=== PATIENT | male | born 1965 | race Caucasian/White ===

== ENCOUNTER 2018-12-30 13:01 | Inpatient (IN) | payer OTHER ==
[~2018-12-30] VITALS: Ht 162.6 cm; Wt 75.9 kg
[2018-12-30] VITALS (8 sets, daily range): BP systolic 161–199
[~2018-12-30 13:01] MED LIST: CALC667T6 PO; CARV25TA55 PO; CAT.1 PO; HYDR-4039 PO; INSU100I26 SQ; LIDOCAINE 2.5%; LOSA100T23 PO; MULT-952 PO; NIFE60TA PO
[2018-12-30 13:53] LABS: BILIRUBIN,URINE NEGATIVE (NEGATIVE); CLARITY/URINE CLEAR (CLEAR); COLOR,URINE YELLOW (YELLOW); GLUCOSE,URINE 2+ (NEGATIVE); KETONES,URINE NEGATIVE (NEGATIVE); LEUKOCYTE ESTERASE ,URINE NEGATIVE (NEGATIVE); NITRITE, URINE NEGATIVE (NEGATIVE); PROTEIN URINE 3+ (NEGATIVE); UROBILINOGEN,URINE 0.2 (0.2-1.0)
[2018-12-30 14:05] LABS: BLOOD, URINE TRACE (NEGATIVE)
[2018-12-30 14:08] LABS: ANION GAP 4 (5-15); CALCIUM 8.9 mg/dL (8.4-11.0); CHLORIDE 93 mmol/L (98-107); GLUCOSE 165 mg/dL (70-99); POTASSIUM 4.9 mmol/L (3.5-5.1); SODIUM SERUM 133 mmol/L (136-145); UREA NITROGEN, BLOOD 41 mg/dL (8-21)
[2018-12-30 14:12] LABS: EOSINOPHILS # (AUTO) 0.1 K/uL (0.0-0.4); EOSINOPHILS % (AUTO) 1.4 % (0.0-4.0); HEMATOCRIT 31.4 % (36-54); HEMOGLOBIN 10.5 g/dL (14.0-18.0); LYMPHOCYTES # (AUTO) 1.3 K/uL (1.0-5.5); LYMPHOCYTES % (AUTO) 17.4 % (20.5-51.5); MEAN CORPUSCULAR HEMOGLOBIN 31 pg (27-31); MEAN CORPUSCULAR HGB CONC 33 % (32-36); MEAN CORPUSCULAR VOLUME 93 fL (79.0-98.0); MONOCYTES # (AUTO) 0.9 K/uL (0.0-1.0); MONOCYTES % (AUTO) 12.5 % (1.7-9.3); PLATELET COUNT (AUTO) 206 K/uL (130-430); RED BLOOD CELL COUNT(AUTO) 3.39 MIL/uL (4.2-6.2); RED CELL DISTRIBUTION WIDTH 15.4 % (9.0-15.0); WHITE BLOOD COUNT (AUTO) 7.2 K/uL (4.8-10.8)
[2018-12-30 14:16] LABS: ALANINE AMINOTRANSFERASE 16 U/L (12-78); ALBUMIN 3.7 g/dL (3.4-4.8); ASPARTATE AMINOTRANSFERASE 16 U/L (10-37); BASOPHILS % (AUTO) 0.2 % (0.0-2.0); NEUTROPHILS % (AUTO) 68.5 % (40.0-70.0); TOTAL BILIRUBIN 0.6 mg/dL (0.0-1.0)
[2018-12-30 14:20] LABS: CREATININE 8.32 mg/dL (0.55-1.30); GFR AFRICAN AMERICAN 9 mL/min (>90)
[2018-12-30] MEDS ORDERED: MECLIZINE HCL 25 MG TABLET (ANITVERT) PO ONE (14:30)
[2018-12-30 14:34] LABS: BACTERIA,URINE RARE /HPF (None Seen); PH,URINE >=9.0 (5.0-8.0); WBC,URINE 0-3 /HPF (0-3)
[2018-12-30] MEDS ORDERED: VITA400C19 PO (15:48)
[2018-12-30] MEDS ORDERED: SUCR500T PO (15:48)
[2018-12-30] MEDS ORDERED: ERGO500020 PO (15:48)
[2018-12-30] MEDS ORDERED: IOHEXOL 350 mgI/mL, 150 ML INFUS..BTL IV ONE (16:40)
[2018-12-30] MEDS ORDERED: IPRATROPIUM/ALBUTEROL SULFATE 3 ML AMPUL.NEB (DUONEB) INH PRN (18:30)
[2018-12-30] MEDS ORDERED: ONDANSETRON HCL 4 MG/2 ML VIAL IVP PRN ×2 (18:30→19:15)
[2018-12-30] MEDS ORDERED: IPRATROPIUM/ALBUTEROL SULFATE 3 ML AMPUL.NEB (DUONEB) ONE (18:38)
[2018-12-30] MEDS ORDERED: LORazepam 2 MG/ML VIAL IVP SCH (19:00)
[2018-12-30] MEDS: LORazepam 1 MG TABLET PO ONE ×2 (19:06→19:26)
[2018-12-30] MEDS ORDERED: LORazepam 2 MG/ML VIAL ONE (19:10)
[2018-12-30] MEDS ORDERED: HYDROcodone/ACETAMIN 5-325 MG TAB (NORCO/ VICODIN) PO PRN (19:15)
[2018-12-30] MEDS ORDERED: ACETAMINOPHEN 325 MG TABLET PO PRN (19:15)
[2018-12-30] MEDS ORDERED: ALBUTEROL SULFATE 0.083% 2.5 MG/3 ML VIAL.NEB INH PRN (19:15)
[2018-12-30] MEDS ORDERED: HYDROcodone/ACETAMIN 10-325 MG TAB PO PRN (19:15)
[2018-12-30] MEDS ORDERED: LORazepam 2 MG/ML VIAL IVP PRN (19:15)
[2018-12-30] MEDS ORDERED: D5W 1,000 ML IV PRN (19:19)
[2018-12-30] MEDS ORDERED: GLUCOSE 15 GM GEL (in 37.5 GM TUBE) PO PRN (19:30)
[2018-12-30] MEDS ORDERED: cloNIDine HCL 0.1 MG TABLET PO SCH (19:30)
[2018-12-30] MEDS ORDERED: DEXTROSE 50% JECT 50 ML DISP.SYRIN IVP PRN (19:30)
[2018-12-30] MEDS: IPRATROPIUM/ALBUTEROL SULFATE 3 ML AMPUL.NEB (DUONEB) INH SCH ×2 (19:50→23:18)
[2018-12-30] MEDS: hydrALAZINE HCL 25 MG TABLET PO SCH (20:17)
[2018-12-30] MEDS: CARVEDILOL 25 MG TABLET (COREG) PO SCH (20:18)
[2018-12-30] MEDS ORDERED: CALCIUM ACETATE 667 MG PO SCH (21:00)
[2018-12-30] MEDS ORDERED: AMPICILLIN SODIUM/SULBACTAM NA 1.5 GM in NS 50 ML IV SCH (21:00)
[2018-12-30] MEDS ORDERED: cefTRIAXone 1 GM IVPB PREMIX 50 ML IV ONE (21:00)
[2018-12-30] MEDS: cefTRIAXone 1 GM in D5W 50 ML IV SCH (21:45)
[2018-12-30] MEDS: NORMAL SALINE 5 ML DISP.SYRIN IVF SCH (21:46)
[2018-12-30] MEDS: LIDOCAINE JELLY 5 ML TUBE MM PRN (21:57)
[2018-12-30] MEDS ORDERED: NORMAL SALINE 5 ML DISP.SYRIN IVF SCH (22:00)
[2018-12-30] MEDS ORDERED: IPRATROPIUM BROM 0.5 MG/2.5 ML VIAL.NEB (ATROVENT) INH SCH (23:00)
[2018-12-31] VITALS (18 sets, daily range): BP systolic 134–172
[2018-12-31] MEDS ORDERED: AMPICILLIN SODIUM/SULBACTAM NA 1.5 GM in NS 50 ML IV SCH ×2
[2018-12-31] MEDS: IPRATROPIUM/ALBUTEROL SULFATE 3 ML AMPUL.NEB (DUONEB) INH SCH ×4 (03:00→19:35)
[2018-12-31] MEDS: NORMAL SALINE 5 ML DISP.SYRIN IVF SCH ×3 (06:04→21:03)
[2018-12-31] MEDS: INSULIN REGULAR, HUMAN 100 UNITS/ML, 10 ML VIAL (humuLIN R) SUBCUT PRN ×2 (06:04→17:17)
[2018-12-31 07:05] LABS: BASOPHILS # (AUTO) 0.1 K/uL (0.0-0.2); BASOPHILS % (AUTO) 0.7 % (0.0-2.0); EOSINOPHILS # (AUTO) 0.1 K/uL (0.0-0.4); EOSINOPHILS % (AUTO) 1.2 % (0.0-4.0); HEMATOCRIT 29.6 % (36-54); HEMOGLOBIN 10.1 g/dL (14.0-18.0); LYMPHOCYTES # (AUTO) 1.3 K/uL (1.0-5.5); LYMPHOCYTES % (AUTO) 18.3 % (20.5-51.5); MEAN CORPUSCULAR HEMOGLOBIN 31 pg (27-31); MEAN CORPUSCULAR HGB CONC 34 % (32-36); MEAN CORPUSCULAR VOLUME 92 fL (79.0-98.0); MONOCYTES # (AUTO) 0.9 K/uL (0.0-1.0); NEUTROPHILS # (AUTO) 4.8 K/uL (1.8-7.7); NEUTROPHILS % (AUTO) 67.8 % (40.0-70.0); PLATELET COUNT (AUTO) 183 K/uL (130-430); RED BLOOD CELL COUNT(AUTO) 3.21 MIL/uL (4.2-6.2); RED CELL DISTRIBUTION WIDTH 15.4 % (9.0-15.0); WHITE BLOOD COUNT (AUTO) 7.1 K/uL (4.8-10.8)
[2018-12-31 07:26] LABS: ALBUMIN 3.2 g/dL (3.4-4.8); CALCIUM 8.3 mg/dL (8.4-11.0); CREATININE 5.67 mg/dL (0.55-1.30); PHOSPHORUS 4.7 mg/dL (2.7-4.5); POTASSIUM 4.1 mmol/L (3.5-5.1); TOTAL BILIRUBIN 0.6 mg/dL (0.0-1.0)
[2018-12-31] MEDS: CALCIUM ACETATE 667 MG CAP PO SCH ×3 (08:22→18:09)
[2018-12-31] MEDS: MULTIVITS,CA,MINERALS/IRON/FA 1 TABLET PO SCH (08:22)
[2018-12-31] MEDS: hydrALAZINE HCL 25 MG TABLET PO SCH ×3 (08:22→21:02)
[2018-12-31] MEDS: LOSARTAN POTASSIUM 50 MG TABLET (COZAAR) PO SCH (08:23)
[2018-12-31] MEDS: CARVEDILOL 25 MG TABLET (COREG) PO SCH ×2 (08:23→21:01)
[2018-12-31] MEDS: NIFEDIPINE 30 MG TAB.ER.24 PO SCH (08:24)
[2018-12-31] MEDS: INSULIN GLARGINE 100 UNITS/ML 10 ML VIAL SUBCUT SCH (08:27)
[2018-12-31] MEDS ORDERED: [UNRECOGNIZED DRUG - OTHER] SQ SCH (09:00)
[2018-12-31] MEDS ORDERED: INSULIN GLARGINE HUM REC ANLOG 10 UNIT SQ SCH (09:00)
[2018-12-31] MEDS ORDERED: AZITHROMYCIN 250 MG TABLET PO SCH (09:00)
[2018-12-31] MEDS ORDERED: [UNRECOGNIZED DRUG - OTHER] PO SCH (09:00)
[2018-12-31] MEDS ORDERED: D3 PO SCH (09:00)
[2018-12-31] MEDS ORDERED: NON-FORMULARY MEDICATION (Losartan Potassium 100 MG) PO SCH (09:00)
[2018-12-31] MEDS ORDERED: FLU VACC QS2019-20 36MOS UP/PF 60 MCG/0.5 ML SYRINGE I.M. PRN (09:00)
[2018-12-31] MEDS ORDERED: NON-FORMULARY MEDICATION (Nifedipine (Procardia Xl) 60 MG) PO SCH (09:00)
[2018-12-31] MEDS: VITAMIN E 400 UNIT CAPSULE PO SCH (12:32)
[2018-12-31] MEDS: LIDOCAINE JELLY 5 ML TUBE MM PRN (13:01)
[2018-12-31] MEDS: cefTRIAXone 1 GM in D5W 50 ML IV SCH (21:02)
[2019-01-01] MEDS: IPRATROPIUM/ALBUTEROL SULFATE 3 ML AMPUL.NEB (DUONEB) INH SCH ×4 (01:20→19:48)
[2019-01-01] MEDS: NORMAL SALINE 5 ML DISP.SYRIN IVF SCH ×3 (05:36→20:54)
[2019-01-01 07:01] LABS: C-REACTIVE PROTEIN QUANT 1.5 mg/dL (0-0.5); CALCIUM 8.6 mg/dL (8.4-11.0); CREATININE 6.47 mg/dL (0.55-1.30); PHOSPHORUS 5.2 mg/dL (2.7-4.5)
[2019-01-01 07:08] LABS: BASOPHILS # (AUTO) 0.1 K/uL (0.0-0.2); BASOPHILS % (AUTO) 0.9 % (0.0-2.0); EOSINOPHILS # (AUTO) 0.2 K/uL (0.0-0.4); EOSINOPHILS % (AUTO) 2.6 % (0.0-4.0); HEMOGLOBIN 10.9 g/dL (14.0-18.0); LYMPHOCYTES # (AUTO) 1.5 K/uL (1.0-5.5); MEAN CORPUSCULAR HEMOGLOBIN 32 pg (27-31); MEAN CORPUSCULAR HGB CONC 34 % (32-36); MEAN CORPUSCULAR VOLUME 93 fL (79.0-98.0); MONOCYTES # (AUTO) 0.8 K/uL (0.0-1.0); MONOCYTES % (AUTO) 12.1 % (1.7-9.3); NEUTROPHILS # (AUTO) 4.1 K/uL (1.8-7.7); NEUTROPHILS % (AUTO) 61.4 % (40.0-70.0); PLATELET COUNT (AUTO) 197 K/uL (130-430); RED BLOOD CELL COUNT(AUTO) 3.45 MIL/uL (4.2-6.2); RED CELL DISTRIBUTION WIDTH 15.1 % (9.0-15.0); WHITE BLOOD COUNT (AUTO) 6.7 K/uL (4.8-10.8)
[2019-01-01 07:21] VITALS: BP_SYST 149
[2019-01-01 07:59] LABS: ERYTHROCYTE SEDIMENTATION RATE 28 MM/HR (0-15)
[2019-01-01] MEDS: VITAMIN E 400 UNIT CAPSULE PO SCH (08:21)
[2019-01-01] MEDS: MULTIVITS,CA,MINERALS/IRON/FA 1 TABLET PO SCH (08:21)
[2019-01-01] MEDS: CALCIUM ACETATE 667 MG CAP PO SCH ×3 (08:21→17:42)
[2019-01-01] MEDS ORDERED: BENZOCAINE 20% 0.5mL UD SPRAY MM ONE (08:30)
[2019-01-01] MEDS: CARVEDILOL 25 MG TABLET (COREG) PO SCH ×2 (09:00→20:52)
[2019-01-01] MEDS: INSULIN GLARGINE 100 UNITS/ML 10 ML VIAL SUBCUT SCH (09:43)
[2019-01-01 11:01] VITALS: BP_SYST 157
[2019-01-01 11:35] VITALS: BP_SYST 167
[2019-01-01 11:44] VITALS: BP_SYST 140
[2019-01-01] MEDS: NIFEDIPINE 30 MG TAB.ER.24 PO SCH (12:28)
[2019-01-01] MEDS: hydrALAZINE HCL 25 MG TABLET PO SCH ×3 (12:30→20:51)
[2019-01-01] MEDS: LOSARTAN POTASSIUM 50 MG TABLET (COZAAR) PO SCH (12:32)
[2019-01-01] MEDS: AZITHROMYCIN 500 MG in NS 250 ML IV SCH (12:35)
[2019-01-01 15:41] VITALS: BP_SYST 141
[2019-01-01] MEDS ORDERED: EPOETIN ALFA 4,000 UNITS/ML VIAL SUBCUT SCH (17:00)
[2019-01-01 20:00] VITALS: BP_SYST 144
[2019-01-01] MEDS: cefTRIAXone 1 GM in D5W 50 ML IV SCH (20:54)
[2019-01-02] MEDS: IPRATROPIUM/ALBUTEROL SULFATE 3 ML AMPUL.NEB (DUONEB) INH SCH ×3 (01:00→13:00)
[2019-01-02 01:33] VITALS: BP_SYST 146
[2019-01-02] MEDS: NORMAL SALINE 5 ML DISP.SYRIN IVF SCH (06:19)
[2019-01-02 06:51] LABS: BASOPHILS # (AUTO) 0.1 K/uL (0.0-0.2); BASOPHILS % (AUTO) 0.9 % (0.0-2.0); EOSINOPHILS # (AUTO) 0.3 K/uL (0.0-0.4); EOSINOPHILS % (AUTO) 3.6 % (0.0-4.0); HEMOGLOBIN 10.8 g/dL (14.0-18.0); LYMPHOCYTES # (AUTO) 1.5 K/uL (1.0-5.5); LYMPHOCYTES % (AUTO) 21.2 % (20.5-51.5); MEAN CORPUSCULAR HEMOGLOBIN 31 pg (27-31); MEAN CORPUSCULAR HGB CONC 34 % (32-36); MEAN CORPUSCULAR VOLUME 92 fL (79.0-98.0); MONOCYTES % (AUTO) 14.6 % (1.7-9.3); NEUTROPHILS # (AUTO) 4.2 K/uL (1.8-7.7); NEUTROPHILS % (AUTO) 59.7 % (40.0-70.0); PLATELET COUNT (AUTO) 196 K/uL (130-430); RED BLOOD CELL COUNT(AUTO) 3.47 MIL/uL (4.2-6.2); RED CELL DISTRIBUTION WIDTH 15.1 % (9.0-15.0)
[2019-01-02 07:29] LABS: C-REACTIVE PROTEIN QUANT 0.9 mg/dL (0-0.5); CALCIUM 8.4 mg/dL (8.4-11.0); CREATININE 7.06 mg/dL (0.55-1.30); PHOSPHORUS 6.5 mg/dL (2.7-4.5); POTASSIUM 4.2 mmol/L (3.5-5.1)
[2019-01-02 07:58] VITALS: BP_SYST 142
[2019-01-02] MEDS: AZITHROMYCIN 500 MG in NS 250 ML IV SCH (08:27)
[2019-01-02] MEDS: MULTIVITS,CA,MINERALS/IRON/FA 1 TABLET PO SCH (08:29)
[2019-01-02 08:30] LABS: ERYTHROCYTE SEDIMENTATION RATE 26 MM/HR (0-15)
[2019-01-02] MEDS: VITAMIN E 400 UNIT CAPSULE PO SCH (08:30)
[2019-01-02] MEDS: CALCIUM ACETATE 667 MG CAP PO SCH (08:30)
[2019-01-02] MEDS: LOSARTAN POTASSIUM 50 MG TABLET (COZAAR) PO SCH (08:31)
[2019-01-02] MEDS: hydrALAZINE HCL 25 MG TABLET PO SCH (08:31)
[2019-01-02] MEDS: NIFEDIPINE 30 MG TAB.ER.24 PO SCH (08:32)
[2019-01-02] MEDS: CARVEDILOL 25 MG TABLET (COREG) PO SCH (08:32)
[2019-01-02] MEDS: INSULIN GLARGINE 100 UNITS/ML 10 ML VIAL SUBCUT SCH (08:39)
[2019-01-02] MEDS ORDERED: AZIT500T3 PO (09:31)
[2019-01-02 10:28] VITALS: BP_SYST 135
[2019-01-02 12:00] VITALS: BP_SYST 135
[2019-01-02 12:07] VITALS: BP_SYST 142
[2019-01-02 20:09] LABS: LEGIONELLA PNEUMOPHILIA AB <0.91 OD ratio (0.00-0.90)
[2019-01-02 21:30] LABS: MYCOPLASMA PNEUMONIAE IgM <770 U/mL (0-769)
[2019-01-06 20:03] LABS: COCCIDIOIDES AB COMPLEMENT FIX None Detected (NEGATIVE)
== END 2019-01-02 13:25 | disposition home or self-care (01) | DRG 682 ==
LOC: SED 13:01 → STU 17:31 → SIC 20:41 → STU 12-31 17:24
PROVIDERS: ADMIT Preventive Medicine Preventive Medicine/Occupational Environmental Medicine; ATTEND Preventive Medicine Preventive Medicine/Occupational Environmental Medicine
PROC: 5A1D70Z Performance of Urinary Filtration, Intermittent, Less than 6 Hours Per Day (ICD-10-PCS; principal; 2018-12-30)
PROC: 5A1D70Z Performance of Urinary Filtration, Intermittent, Less than 6 Hours Per Day (ICD-10-PCS; 2018-12-31)
PROC: 5A1D70Z Performance of Urinary Filtration, Intermittent, Less than 6 Hours Per Day (ICD-10-PCS; 2019-01-01)
DX: I12.0 Hypertensive chronic kidney disease with stage 5 chronic kidney disease or end stage renal disease (principal); J96.01 Acute respiratory failure with hypoxia; J18.9 Pneumonia, unspecified organism; N18.6 End stage renal disease; E87.1 Hypo-osmolality and hyponatremia; E87.70 Fluid overload, unspecified; E11.22 Type 2 diabetes mellitus with diabetic chronic kidney disease; D63.1 Anemia in chronic kidney disease; E11.21 Type 2 diabetes mellitus with diabetic nephropathy; E11.42 Type 2 diabetes mellitus with diabetic polyneuropathy; E11.65 Type 2 diabetes mellitus with hyperglycemia; E78.5 Hyperlipidemia, unspecified; Z99.2 Dependence on renal dialysis; E55.9 Vitamin D deficiency, unspecified; Z79.899 Other long term (current) drug therapy
CPT/HCPCS: 36415; 36600; 71045; 71275; 80048; 80053; 81000-TC; 82803-TC; 82962; 83605; 83735-TC; 83880; 84100-TC; 84484; 85025; 85651-TC; 86140; 86635; 86713; 86738; 87040-TC; 87081; 90935; 90937; 93005; 93306; 94640; 94760; 99291; G0378; J0295; J0456; J0696; J0885; J1815; J2060; J7030; J7050; J7060; J7620; J8597; Q0144; Q9967

== ENCOUNTER 2019-01-07 05:09 | Inpatient (IN) | payer OTHER ==
[2019-01-07] VITALS (20 sets, daily range): BP systolic 136–245
[~2019-01-07] VITALS: Ht 162.6 cm; Wt 74.4 kg
[~2019-01-07 05:09] MED LIST changes: +AZIT500T3 PO; +ERGO500020 PO; +SUCR500T PO; +VITA400C19 PO
[2019-01-07] MEDS ORDERED: methylPREDNISolone SOD SUCC/PF 62.5 MG/ML VIAL IVP ONE (05:15)
[2019-01-07] MEDS ORDERED: IPRATROPIUM/ALBUTEROL SULFATE 3 ML AMPUL.NEB (DUONEB) INH ONE (05:15)
[2019-01-07] MEDS ORDERED: FUROSEMIDE 40 MG/4 ML VIAL IVP ONE (05:30)
[2019-01-07] MEDS ORDERED: NITROGLYCERIN 0.4 MG TAB.SUBL SL ONE ×2 (05:30→05:38)
[2019-01-07 05:33] LABS: BASOPHILS # (AUTO) 0.1 K/uL (0.0-0.2); BASOPHILS % (AUTO) 0.8 % (0.0-2.0); EOSINOPHILS # (AUTO) 0.2 K/uL (0.0-0.4); EOSINOPHILS % (AUTO) 2.3 % (0.0-4.0); HEMATOCRIT 32.2 % (36-54); HEMOGLOBIN 10.7 g/dL (14.0-18.0); LYMPHOCYTES # (AUTO) 1.6 K/uL (1.0-5.5); MEAN CORPUSCULAR HEMOGLOBIN 31 pg (27-31); MEAN CORPUSCULAR HGB CONC 33 % (32-36); MEAN CORPUSCULAR VOLUME 93 fL (79.0-98.0); MONOCYTES # (AUTO) 0.8 K/uL (0.0-1.0); MONOCYTES % (AUTO) 8.1 % (1.7-9.3); NEUTROPHILS # (AUTO) 7.3 K/uL (1.8-7.7); NEUTROPHILS % (AUTO) 72.8 % (40.0-70.0); PLATELET COUNT (AUTO) 206 K/uL (130-430); RED BLOOD CELL COUNT(AUTO) 3.47 MIL/uL (4.2-6.2); RED CELL DISTRIBUTION WIDTH 15.4 % (9.0-15.0)
[2019-01-07 05:47] LABS: ANION GAP 6 (5-15); CALCIUM 9.1 mg/dL (8.4-11.0); CHLORIDE 95 mmol/L (98-107); GLUCOSE 149 mg/dL (70-99); POTASSIUM 4.6 mmol/L (3.5-5.1); SODIUM SERUM 135 mmol/L (136-145); UREA NITROGEN, BLOOD 51 mg/dL (8-21)
[2019-01-07 05:56] LABS: ALANINE AMINOTRANSFERASE 17 U/L (12-78); ALBUMIN 3.8 g/dL (3.4-4.8); ASPARTATE AMINOTRANSFERASE 21 U/L (10-37); LIPASE 190 U/L (73-393); TOTAL BILIRUBIN 0.5 mg/dL (0.0-1.0)
[2019-01-07] MEDS ORDERED: NITROGLYCERIN 250 ML IV ONE (06:00)
[2019-01-07 06:03] LABS: GFR AFRICAN AMERICAN 8 mL/min (>90)
[2019-01-07 06:05] LABS: CREATININE 9.44 mg/dL (0.55-1.30)
[2019-01-07] MEDS ORDERED: LORazepam 2 MG/ML VIAL IVP ONE (07:00)
[2019-01-07] MEDS ORDERED: D5/0.45 NS 1,000 ML IV SCH (07:00)
[2019-01-07] MEDS ORDERED: NORFLURANE/HFC 245FA 103.5 ML SPRAY TP ONE (13:00)
[2019-01-07] MEDS ORDERED: GLUCOSE 15 GM GEL (in 37.5 GM TUBE) PO PRN (17:15)
[2019-01-07] MEDS ORDERED: DEXTROSE 50% JECT 50 ML DISP.SYRIN IVP PRN (17:15)
[2019-01-07] MEDS ORDERED: LORazepam 2 MG/ML VIAL IVP PRN (17:15)
[2019-01-07] MEDS ORDERED: D5W 1,000 ML IV PRN (17:15)
[2019-01-07] MEDS ORDERED: MORPHINE 2 MG/ML INJ. SYRINGE IVP PRN (17:15)
[2019-01-07] MEDS ORDERED: MORPHINE 4 MG/ML INJ. SYRINGE IVP PRN (17:15)
[2019-01-07] MEDS ORDERED: cloNIDine HCL 0.1 MG TABLET PO ONE (19:30)
[2019-01-07] MEDS: ATORVASTATIN 20 MG TABLET PO SCH (20:18)
[2019-01-07] MEDS: CARVEDILOL 6.25 MG TABLET (COREG) PO SCH (20:21)
[2019-01-07] MEDS ORDERED: NITROGLYCERIN 250 ML IV PRN (23:00)
[2019-01-07] MEDS: cloNIDine HCL 0.1 MG TABLET PO SCH (23:48)
[2019-01-08] VITALS (24 sets, daily range): BP systolic 107–170
[2019-01-08] MEDS: cloNIDine HCL 0.1 MG TABLET PO SCH ×3 (05:25→17:27)
[2019-01-08 06:02] LABS: BASOPHILS % (AUTO) 0.4 % (0.0-2.0); EOSINOPHILS % (AUTO) 0.1 % (0.0-4.0); HEMOGLOBIN 9.1 g/dL (14.0-18.0); LYMPHOCYTES # (AUTO) 1.3 K/uL (1.0-5.5); LYMPHOCYTES % (AUTO) 14.1 % (20.5-51.5); MEAN CORPUSCULAR HEMOGLOBIN 31 pg (27-31); MEAN CORPUSCULAR HGB CONC 34 % (32-36); MEAN CORPUSCULAR VOLUME 93 fL (79.0-98.0); MONOCYTES % (AUTO) 10.4 % (1.7-9.3); NEUTROPHILS # (AUTO) 7.1 K/uL (1.8-7.7); PLATELET COUNT (AUTO) 191 K/uL (130-430); RED BLOOD CELL COUNT(AUTO) 2.91 MIL/uL (4.2-6.2); RED CELL DISTRIBUTION WIDTH 15.2 % (9.0-15.0); WHITE BLOOD COUNT (AUTO) 9.5 K/uL (4.8-10.8)
[2019-01-08 06:13] LABS: ALBUMIN 3.2 g/dL (3.4-4.8); PHOSPHORUS 6.2 mg/dL (2.7-4.5); TOTAL BILIRUBIN 0.6 mg/dL (0.0-1.0)
[2019-01-08 07:13] LABS: CREATININE 8.25 mg/dL (0.55-1.30)
[2019-01-08] MEDS: LOSARTAN POTASSIUM 50 MG TABLET (COZAAR) PO SCH (08:34)
[2019-01-08] MEDS: CARVEDILOL 6.25 MG TABLET (COREG) PO SCH ×2 (08:34→21:16)
[2019-01-08] MEDS: INSULIN GLARGINE 100 UNITS/ML 10 ML VIAL SQ SCH (08:38)
[2019-01-08] MEDS ORDERED: FUROSEMIDE 20 MG/2 ML VIAL IVP SCH (09:00)
[2019-01-08] MEDS: ONDANSETRON HCL 4 MG/2 ML VIAL IVP PRN (10:32)
[2019-01-08] MEDS ORDERED: EPOETIN ALFA 4,000 UNITS/ML VIAL SUBCUT SCH ×2 (12:00→12:20)
[2019-01-08] MEDS: INSULIN REGULAR, HUMAN 100 UNITS/ML, 10 ML VIAL (humuLIN R) SUBCUT PRN (12:32)
[2019-01-08] MEDS: ATORVASTATIN 20 MG TABLET PO SCH (21:16)
[2019-01-09] VITALS (25 sets, daily range): BP systolic 110–176
[2019-01-09] MEDS: cloNIDine HCL 0.1 MG TABLET PO SCH ×4 (00:18→18:00)
[2019-01-09] MEDS: INSULIN REGULAR, HUMAN 100 UNITS/ML, 10 ML VIAL (humuLIN R) SUBCUT PRN ×3 (00:24→12:54)
[2019-01-09 06:12] LABS: BASOPHILS # (AUTO) 0.1 K/uL (0.0-0.2); BASOPHILS % (AUTO) 0.7 % (0.0-2.0); EOSINOPHILS # (AUTO) 0.2 K/uL (0.0-0.4); EOSINOPHILS % (AUTO) 1.7 % (0.0-4.0); HEMATOCRIT 30.8 % (36-54); HEMOGLOBIN 10.5 g/dL (14.0-18.0); LYMPHOCYTES # (AUTO) 1.7 K/uL (1.0-5.5); LYMPHOCYTES % (AUTO) 18.5 % (20.5-51.5); MEAN CORPUSCULAR HEMOGLOBIN 31 pg (27-31); MEAN CORPUSCULAR HGB CONC 34 % (32-36); MEAN CORPUSCULAR VOLUME 92 fL (79.0-98.0); MONOCYTES # (AUTO) 0.9 K/uL (0.0-1.0); MONOCYTES % (AUTO) 10.2 % (1.7-9.3); NEUTROPHILS # (AUTO) 6.3 K/uL (1.8-7.7); NEUTROPHILS % (AUTO) 68.9 % (40.0-70.0); PLATELET COUNT (AUTO) 211 K/uL (130-430); RED BLOOD CELL COUNT(AUTO) 3.33 MIL/uL (4.2-6.2); RED CELL DISTRIBUTION WIDTH 14.8 % (9.0-15.0); WHITE BLOOD COUNT (AUTO) 9.2 K/uL (4.8-10.8)
[2019-01-09 07:16] LABS: ALBUMIN 3.3 g/dL (3.4-4.8); CALCIUM 8.7 mg/dL (8.4-11.0); PHOSPHORUS 6.2 mg/dL (2.7-4.5); POTASSIUM 4.1 mmol/L (3.5-5.1); TOTAL BILIRUBIN 0.7 mg/dL (0.0-1.0)
[2019-01-09 08:02] LABS: CREATININE 8.11 mg/dL (0.55-1.30)
[2019-01-09] MEDS ORDERED: cloNIDine HCL 0.1 MG TABLET PO SCH (09:30)
[2019-01-09] MEDS: LOSARTAN POTASSIUM 50 MG TABLET (COZAAR) PO SCH (10:01)
[2019-01-09] MEDS: CARVEDILOL 6.25 MG TABLET (COREG) PO SCH ×2 (10:02→21:05)
[2019-01-09] MEDS: INSULIN GLARGINE 100 UNITS/ML 10 ML VIAL SQ SCH (10:04)
[2019-01-09] MEDS ORDERED: NEPHROVITE, (FOLIC ACID/VITAMIN B COMP W-C 1 TAB) PO ONE (12:00)
[2019-01-09] MEDS: CALCIUM ACETATE 667 MG CAP PO SCH ×2 (12:55→18:14)
[2019-01-09] MEDS: hydrALAZINE HCL 25 MG TABLET PO SCH ×2 (15:12→21:03)
[2019-01-09] MEDS: ATORVASTATIN 20 MG TABLET PO SCH (21:05)
[2019-01-09] MEDS: CARVEDILOL 25 MG TABLET (COREG) PO SCH (21:05)
[2019-01-10] VITALS (20 sets, daily range): BP systolic 111–148
[2019-01-10] MEDS: cloNIDine HCL 0.1 MG TABLET PO SCH ×4 (00:06→18:44)
[2019-01-10 05:24] LABS: BASOPHILS # (AUTO) 0.1 K/uL (0.0-0.2); EOSINOPHILS # (AUTO) 0.2 K/uL (0.0-0.4); HEMATOCRIT 32.7 % (36-54); LYMPHOCYTES # (AUTO) 1.9 K/uL (1.0-5.5); LYMPHOCYTES % (AUTO) 23.3 % (20.5-51.5); MEAN CORPUSCULAR HEMOGLOBIN 31 pg (27-31); MEAN CORPUSCULAR HGB CONC 34 % (32-36); MEAN CORPUSCULAR VOLUME 93 fL (79.0-98.0); MONOCYTES % (AUTO) 12.1 % (1.7-9.3); NEUTROPHILS # (AUTO) 4.9 K/uL (1.8-7.7); NEUTROPHILS % (AUTO) 61.6 % (40.0-70.0); PLATELET COUNT (AUTO) 205 K/uL (130-430); RED BLOOD CELL COUNT(AUTO) 3.52 MIL/uL (4.2-6.2); RED CELL DISTRIBUTION WIDTH 15.1 % (9.0-15.0)
[2019-01-10 05:43] LABS: ALBUMIN 3.5 g/dL (3.4-4.8); CALCIUM 9.1 mg/dL (8.4-11.0); PHOSPHORUS 6.3 mg/dL (2.7-4.5); POTASSIUM 4.1 mmol/L (3.5-5.1); TOTAL BILIRUBIN 0.6 mg/dL (0.0-1.0)
[2019-01-10 05:50] LABS: CREATININE 7.97 mg/dL (0.55-1.30)
[2019-01-10] MEDS ORDERED: FLU VACC QS2019-20 36MOS UP/PF 60 MCG/0.5 ML SYRINGE I.M. PRN (06:00)
[2019-01-10] MEDS: hydrALAZINE HCL 25 MG TABLET PO SCH ×3 (09:00→20:30)
[2019-01-10] MEDS: CARVEDILOL 25 MG TABLET (COREG) PO SCH (09:00)
[2019-01-10] MEDS ORDERED: NON-FORMULARY MEDICATION (Losartan Potassium 100 MG) PO SCH (09:00)
[2019-01-10] MEDS: NIFEDIPINE 30 MG TAB.ER.24 PO SCH (09:00)
[2019-01-10] MEDS: CALCIUM ACETATE 667 MG CAP PO SCH ×3 (09:00→18:41)
[2019-01-10] MEDS: LOSARTAN POTASSIUM 50 MG TABLET (COZAAR) PO SCH (09:01)
[2019-01-10] MEDS: VITAMIN E 400 UNIT CAPSULE PO SCH (09:02)
[2019-01-10] MEDS: NEPHROVITE, (FOLIC ACID/VITAMIN B COMP W-C 1 TAB) PO SCH (09:02)
[2019-01-10] MEDS: INSULIN GLARGINE 100 UNITS/ML 10 ML VIAL SQ SCH (09:04)
[2019-01-10] MEDS: INSULIN REGULAR, HUMAN 100 UNITS/ML, 10 ML VIAL (humuLIN R) SUBCUT PRN (12:11)
[2019-01-10] MEDS: ONDANSETRON HCL 4 MG/2 ML VIAL IVP PRN (13:36)
[2019-01-10] MEDS: EPOETIN ALFA 4,000 UNITS/ML VIAL SUBCUT SCH (16:32)
[2019-01-10] MEDS: ATORVASTATIN 20 MG TABLET PO SCH (20:27)
[2019-01-10] MEDS: CARVEDILOL 6.25 MG TABLET (COREG) PO SCH (20:29)
[2019-01-11 01:33] VITALS: BP_SYST 149
[2019-01-11] MEDS: cloNIDine HCL 0.1 MG TABLET PO SCH ×2 (06:34→18:38)
[2019-01-11 07:26] LABS: BASOPHILS # (AUTO) 0.1 K/uL (0.0-0.2); BASOPHILS % (AUTO) 0.9 % (0.0-2.0); EOSINOPHILS # (AUTO) 0.2 K/uL (0.0-0.4); EOSINOPHILS % (AUTO) 2.7 % (0.0-4.0); HEMATOCRIT 32.6 % (36-54); LYMPHOCYTES # (AUTO) 1.5 K/uL (1.0-5.5); LYMPHOCYTES % (AUTO) 21.9 % (20.5-51.5); MEAN CORPUSCULAR HEMOGLOBIN 31 pg (27-31); MEAN CORPUSCULAR HGB CONC 34 % (32-36); MEAN CORPUSCULAR VOLUME 92 fL (79.0-98.0); MONOCYTES # (AUTO) 0.7 K/uL (0.0-1.0); MONOCYTES % (AUTO) 10.9 % (1.7-9.3); NEUTROPHILS # (AUTO) 4.3 K/uL (1.8-7.7); NEUTROPHILS % (AUTO) 63.6 % (40.0-70.0); PLATELET COUNT (AUTO) 192 K/uL (130-430); RED BLOOD CELL COUNT(AUTO) 3.53 MIL/uL (4.2-6.2); RED CELL DISTRIBUTION WIDTH 14.8 % (9.0-15.0); WHITE BLOOD COUNT (AUTO) 6.8 K/uL (4.8-10.8)
[2019-01-11 07:40] VITALS: BP_SYST 140
[2019-01-11 07:46] LABS: ALBUMIN 3.4 g/dL (3.4-4.8); CALCIUM 8.9 mg/dL (8.4-11.0); PHOSPHORUS 7.8 mg/dL (2.7-4.5); POTASSIUM 4.3 mmol/L (3.5-5.1); TOTAL BILIRUBIN 0.5 mg/dL (0.0-1.0)
[2019-01-11 07:56] LABS: CREATININE 10.48 mg/dL (0.55-1.30)
[2019-01-11] MEDS: PATIENT'S OWN TABLET PO SCH (09:00)
[2019-01-11] MEDS: NIFEDIPINE 30 MG TAB.ER.24 PO SCH (09:41)
[2019-01-11] MEDS: hydrALAZINE HCL 25 MG TABLET PO SCH ×3 (09:41→21:00)
[2019-01-11] MEDS: CARVEDILOL 6.25 MG TABLET (COREG) PO SCH ×2 (09:41→21:00)
[2019-01-11] MEDS: NEPHROVITE, (FOLIC ACID/VITAMIN B COMP W-C 1 TAB) PO SCH (09:42)
[2019-01-11] MEDS: VITAMIN E 400 UNIT CAPSULE PO SCH (09:42)
[2019-01-11] MEDS: CALCIUM ACETATE 667 MG CAP PO SCH ×3 (09:42→18:37)
[2019-01-11] MEDS: LOSARTAN POTASSIUM 50 MG TABLET (COZAAR) PO SCH (09:42)
[2019-01-11] MEDS: INSULIN GLARGINE 100 UNITS/ML 10 ML VIAL SQ SCH (09:52)
[2019-01-11 11:00] VITALS: BP_SYST 143
[2019-01-11 15:21] VITALS: BP_SYST 101
[2019-01-11] MEDS: INSULIN REGULAR, HUMAN 100 UNITS/ML, 10 ML VIAL (humuLIN R) SUBCUT PRN (18:40)
[2019-01-11 20:00] VITALS: BP_SYST 111
[2019-01-11] MEDS: ATORVASTATIN 20 MG TABLET PO SCH (21:08)
[2019-01-12] VITALS (7 sets, daily range): BP systolic 116–146
[2019-01-12] MEDS: cloNIDine HCL 0.1 MG TABLET PO SCH (06:37)
[2019-01-12 08:01] LABS: BASOPHILS # (AUTO) 0.1 K/uL (0.0-0.2); BASOPHILS % (AUTO) 1.3 % (0.0-2.0); EOSINOPHILS # (AUTO) 0.2 K/uL (0.0-0.4); EOSINOPHILS % (AUTO) 3.1 % (0.0-4.0); HEMATOCRIT 33.6 % (36-54); HEMOGLOBIN 11.4 g/dL (14.0-18.0); LYMPHOCYTES # (AUTO) 1.5 K/uL (1.0-5.5); LYMPHOCYTES % (AUTO) 23.7 % (20.5-51.5); MEAN CORPUSCULAR HEMOGLOBIN 31 pg (27-31); MEAN CORPUSCULAR HGB CONC 34 % (32-36); MEAN CORPUSCULAR VOLUME 92 fL (79.0-98.0); MONOCYTES # (AUTO) 0.7 K/uL (0.0-1.0); MONOCYTES % (AUTO) 10.6 % (1.7-9.3); NEUTROPHILS % (AUTO) 61.3 % (40.0-70.0); PLATELET COUNT (AUTO) 207 K/uL (130-430); RED BLOOD CELL COUNT(AUTO) 3.66 MIL/uL (4.2-6.2); RED CELL DISTRIBUTION WIDTH 14.9 % (9.0-15.0); WHITE BLOOD COUNT (AUTO) 6.5 K/uL (4.8-10.8)
[2019-01-12 08:17] LABS: CALCIUM 9.1 mg/dL (8.4-11.0); PHOSPHORUS 6.4 mg/dL (2.7-4.5); POTASSIUM 4.5 mmol/L (3.5-5.1)
[2019-01-12 08:53] LABS: CREATININE 8.28 mg/dL (0.55-1.30)
[2019-01-12] MEDS: INSULIN GLARGINE 100 UNITS/ML 10 ML VIAL SQ SCH (09:00)
[2019-01-12] MEDS: PATIENT'S OWN TABLET PO SCH (09:00)
[2019-01-12] MEDS: LOSARTAN POTASSIUM 50 MG TABLET (COZAAR) PO SCH (09:00)
[2019-01-12] MEDS: NIFEDIPINE 30 MG TAB.ER.24 PO SCH (09:00)
[2019-01-12] MEDS: CARVEDILOL 6.25 MG TABLET (COREG) PO SCH (09:00)
[2019-01-12] MEDS: hydrALAZINE HCL 25 MG TABLET PO SCH ×2 (09:00→15:00)
[2019-01-12] MEDS: VITAMIN E 400 UNIT CAPSULE PO SCH (10:13)
[2019-01-12] MEDS: NEPHROVITE, (FOLIC ACID/VITAMIN B COMP W-C 1 TAB) PO SCH (10:13)
[2019-01-12] MEDS: CALCIUM ACETATE 667 MG CAP PO SCH ×2 (10:23→12:59)
[2019-01-12] MEDS ORDERED: NS 250 ML IV ONE (11:30)
[2019-01-12] MEDS: INSULIN REGULAR, HUMAN 100 UNITS/ML, 10 ML VIAL (humuLIN R) SUBCUT PRN (12:59)
[2019-01-12] MEDS ORDERED: COR6.25 PO (15:21)
[2019-01-12] MEDS ORDERED: LOSA50TA3 PO (15:21)
[2019-01-12] MEDS ORDERED: LIP20 PO (15:21)
[2019-01-12] MEDS: EPOETIN ALFA 4,000 UNITS/ML VIAL SUBCUT SCH (17:07)
== END 2019-01-12 17:25 | disposition home or self-care (01) | DRG 189 ==
LOC: SED 05:09 → SIC 06:50 → SMU 01-10 18:25
PROVIDERS: ADMIT Preventive Medicine Preventive Medicine/Occupational Environmental Medicine; ATTEND Preventive Medicine Preventive Medicine/Occupational Environmental Medicine
PROC: 5A1D70Z Performance of Urinary Filtration, Intermittent, Less than 6 Hours Per Day (ICD-10-PCS; principal; 2019-01-07)
PROC: 5A09357 Assistance with Respiratory Ventilation, Less than 24 Consecutive Hours, Continuous Positive Airway Pressure (ICD-10-PCS; 2019-01-07)
PROC: 5A1D70Z Performance of Urinary Filtration, Intermittent, Less than 6 Hours Per Day (ICD-10-PCS; 2019-01-09)
PROC: 5A1D70Z Performance of Urinary Filtration, Intermittent, Less than 6 Hours Per Day (ICD-10-PCS; 2019-01-10)
DX: J96.00 Acute respiratory failure, unspecified whether with hypoxia or hypercapnia (principal); N18.6 End stage renal disease; I13.2 Hypertensive heart and chronic kidney disease with heart failure and with stage 5 chronic kidney disease, or end stage renal disease; E87.1 Hypo-osmolality and hyponatremia; N25.81 Secondary hyperparathyroidism of renal origin; I50.9 Heart failure, unspecified; D63.1 Anemia in chronic kidney disease; E11.22 Type 2 diabetes mellitus with diabetic chronic kidney disease; E11.65 Type 2 diabetes mellitus with hyperglycemia; E55.9 Vitamin D deficiency, unspecified; E78.5 Hyperlipidemia, unspecified; F41.9 Anxiety disorder, unspecified; Z79.899 Other long term (current) drug therapy; Z99.2 Dependence on renal dialysis
CPT/HCPCS: 36415; 36600; 71045; 80048; 80053; 82803-TC; 82962; 83605; 83690-TC; 83735-TC; 83880; 84100-TC; 84484; 85025; 87040-TC; 87081; 90935; 90937; 93005; 93971; 94640; 94660; 96374; 96375; 99291; J0885; J1815; J1940; J2060; J2405; J2930; J3490; J7030; J7050; J7620

== ENCOUNTER 2019-03-27 07:13 | Emergency (ER) | payer OTHER ==
[~2019-03-27] VITALS: Ht 162.6 cm; Wt 79.4 kg
[~2019-03-27 07:13] MED LIST changes: -AZIT500T3 PO; -CARV25TA55 PO; +COR6.25 PO; +LIP20 PO; -LOSA100T23 PO; +LOSA50TA3 PO
[2019-03-27 07:20] VITALS: BP_SYST 171
--- NOTE | 2019-03-27 07:20 | NUR ---
Patient to ER bed 7 to gown for evaluation. Side rails up. Report given to ESTHER Ashby.
--- NOTE | 2019-03-27 07:30 | NUR ---
PT CAME TO ER FOR R BIG TOE LAC AFTER CUTTING TOE NAILS TOO DEEP. BLEEDING HAS NOT STOPPED SINCE MONDAY. PT CURRENTLY AO4, RR EVEN AND UNLABORED NO DISTRESS NOTED.
--- NOTE | 2019-03-27 07:32 | NUR ---
ER Dr. Malloy at bedside examining patient.
--- NOTE | 2019-03-27 07:40 | NUR ---
Surgi-cell applied to pt toe
--- NOTE | 2019-03-27 08:20 | NUR ---
Dermabond applied to pt toe Addendum: 03/27/19 at 0844 by [email or web address] bleeding stopped after dermabond applied
[2019-03-27 08:30] VITALS: BP_SYST 171
[2019-03-27] MEDS ORDERED: ACETAMINOPHEN 500 MG TABLET PO ONE (08:30)
--- NOTE | 2019-03-27 08:30 | NUR ---
Patient given written and verbal discharge instructions and verbalizes understanding. ER MD discussed with patient the results and treatment provided. Patient in stable condition. ID arm band removed. Rx of Keflex given. Patient educated on pain management and to follow up with PMD. Pain Scale 7, meds administered. Opportunity for questions provided and answered. Medication side effect fact sheet provided.
== END 2019-03-27 08:29 | disposition home or self-care (01) ==
LOC: SED 07:13
DX: S91.112A Laceration without foreign body of left great toe without damage to nail, initial encounter (principal); M79.675 Pain in left toe(s); E11.22 Type 2 diabetes mellitus with diabetic chronic kidney disease; I12.0 Hypertensive chronic kidney disease with stage 5 chronic kidney disease or end stage renal disease; Z97.4 Presence of external hearing-aid; Z91.011 Allergy to milk products; Z79.899 Other long term (current) drug therapy; W26.8XXA Contact with other sharp object(s), not elsewhere classified, initial encounter; Y93.89 Activity, other specified; Y92.89 Other specified places as the place of occurrence of the external cause; Y99.8 Other external cause status
CPT/HCPCS: 99283

== ENCOUNTER 2020-11-01 02:28 | Emergency (ER) | payer OTHER, MEDICAID, SELFPAY ==
[~2020-11-01] VITALS: Ht 162.6 cm; Wt 74.8 kg
[~2020-11-01 02:28] MED LIST changes: +AMLO5TAB4 PO; +AMOX500T2 PO; +APIX5TAB PO; -CALC667T6 PO; -COR6.25 PO; -ERGO500020 PO; -HYDR-4039 PO; +LACT1CAP58 PO; -LIP20 PO; +LIP40 PO; +LOPE2CAP PO; -LOSA50TA3 PO; +METO25TA6 PO; -MULT-952 PO; -NIFE60TA PO; +NITR0.4T47 SL; +PARO-41 PO; +REN800 PO; +RENA-VITE PO; +SACC250C3 PO; -SUCR500T PO; +TRAZ-250 PO; -VITA400C19 PO
[2020-11-01 03:10] VITALS: BP_SYST 165
--- NOTE | 2020-11-01 05:08 | NUR ---
Patient to ER bed CH1.
--- NOTE | 2020-11-01 05:10 | NUR ---
Patient from home, alert, awake, oriented x 4 c/o low back pain started after his dialysis yesterday at 11:30 am. Patient states he was given an antibiotic but cannot remember the name. Patient is complaining of 10/10 PS. Patient states he took Tylenol w/o relief. Patient denies any other symptoms.
--- NOTE | 2020-11-01 05:44 | NUR ---
DEONNA Wagner at bedside examining patient.
[2020-11-01] MEDS ORDERED: OXYCODONE/ACETAMINOPHEN 5-325 TABLET PO ONE (06:00)
--- NOTE | 2020-11-01 07:15 | NUR ---
REPORT RECEIVED FROM NARA SANTANA. PT IS CURRENTLY IN STABLE CONDITION
[2020-11-01 07:31] LABS: BASOPHILS # (AUTO) 0.1 K/uL (0.0-0.2); BASOPHILS % (AUTO) 0.9 % (0.0-2.0); EOSINOPHILS # (AUTO) 0.1 K/uL (0.0-0.4); EOSINOPHILS % (AUTO) 1.8 % (0.0-4.0); HEMATOCRIT 29.3 % (36-54); HEMOGLOBIN 9.8 g/dL (14.0-18.0); LYMPHOCYTES % (AUTO) 24.6 % (20.5-51.5); MEAN CORPUSCULAR HEMOGLOBIN 30 pg (27-31); MEAN CORPUSCULAR HGB CONC 33 % (32-36); MEAN CORPUSCULAR VOLUME 91 fL (79.0-98.0); MONOCYTES # (AUTO) 0.9 K/uL (0.0-1.0); MONOCYTES % (AUTO) 11.2 % (1.7-9.3); NEUTROPHILS # (AUTO) 5.1 K/uL (1.8-7.7); NEUTROPHILS % (AUTO) 61.5 % (40.0-70.0); PLATELET COUNT (AUTO) 196 K/uL (130-430); RED BLOOD CELL COUNT(AUTO) 3.22 MIL/uL (4.2-6.2); RED CELL DISTRIBUTION WIDTH 13.9 % (9.0-15.0); WHITE BLOOD COUNT (AUTO) 8.2 K/uL (4.8-10.8)
[2020-11-01] MEDS ORDERED: OXYC-128 PO (07:44)
[2020-11-01 07:47] LABS: CALCIUM 9.7 mg/dL (8.4-11.0); CREATININE 6.56 mg/dL (0.55-1.30); POTASSIUM 5.1 mmol/L (3.5-5.1)
[2020-11-01 07:49] LABS: PROTHROMBIN TIME 10.9 SECS (9.5-12.5)
--- NOTE | 2020-11-01 07:50 | NUR ---
Patient given written and verbal discharge instructions and verbalizes understanding. ER MD discussed with patient the results and treatment provided. Patient in stable condition. ID arm band removed. Rx of PERCOCET given. Patient educated on pain management and to follow up with PMD. Pain Scale 3/10. Opportunity for questions provided and answered. Medication side effect fact sheet provided.
[2020-11-01 07:53] LABS: ALBUMIN 3.8 g/dL (3.4-4.8); TOTAL BILIRUBIN 0.3 mg/dL (0.0-1.0)
[2020-11-01 07:59] VITALS: BP_SYST 165
== END 2020-11-01 07:59 | disposition home or self-care (01) ==
LOC: SED 02:28
DX: M54.41 Lumbago with sciatica, right side (principal); M54.42 Lumbago with sciatica, left side; I13.2 Hypertensive heart and chronic kidney disease with heart failure and with stage 5 chronic kidney disease, or end stage renal disease; E11.22 Type 2 diabetes mellitus with diabetic chronic kidney disease; I50.9 Heart failure, unspecified; N18.6 End stage renal disease; Z99.2 Dependence on renal dialysis; Z88.8 Allergy status to other drugs, medicaments and biological substances; Z79.899 Other long term (current) drug therapy
CPT/HCPCS: 36415; 71045; 72131; 76376; 80053; 84484; 85025; 85610-TC; 85730-TC; 99285